=== PATIENT | female | born 1960 | race Caucasian/White ===

== ENCOUNTER 2022-03-29 06:33 | Day surgery (SDC) | payer OTHER ==
[~2022-03-29] VITALS: Ht 154.9 cm; Wt 73.0 kg
[2022-03-29] MEDS ORDERED: MEPERIDINE 100 MG INJ. 100 MG/ML VIAL ONE (07:40)
[2022-03-29] MEDS ORDERED: MIDAZOLAM HCL 5 MG/5 ML VIAL ONE (07:41)
[2022-03-29] MEDS ORDERED: fentaNYL CITRATE/PF 100 MCG/2 ML AMP ONE (08:15)
[2022-03-29 11:20] VITALS: BP_SYST 151
== END 2022-03-29 11:04 | disposition home or self-care (01) ==
LOC: SDS 06:33 → SMU 06:34 → SDS 11:04
PROVIDERS: ATTEND Internal Medicine
DX: R19.4 Change in bowel habit (principal); D12.3 Benign neoplasm of transverse colon; K57.30 Diverticulosis of large intestine without perforation or abscess without bleeding; K64.8 Other hemorrhoids; E11.22 Type 2 diabetes mellitus with diabetic chronic kidney disease; N18.6 End stage renal disease; Z86.010 Personal history of colon polyps; Z99.2 Dependence on renal dialysis; Z79.899 Other long term (current) drug therapy; Z20.822 Contact with and (suspected) exposure to COVID-19
CPT/HCPCS: 36415 ×2; 45385; 87426; 82962; 88305; 99152; 99153; U0003; J2250; J3010; J2175